=== PATIENT | female | born 1940 | race Caucasian/White ===

== ENCOUNTER 2021-09-27 08:50 | Emergency (ER) | payer MEDICARE ==
[~2021-09-27] VITALS: Ht 160 cm; Wt 61.1 kg
[2021-09-27] MEDS ORDERED: NORVASC10 MG PO (09:30)
[2021-09-27] MEDS ORDERED: ATORVASTATIN CA80 MG PO (10:06)
[2021-09-27] MEDS ORDERED: ASPIRIN81 MG PO (10:06)
[2021-09-27] MEDS ORDERED: CLONIDINE HCL0.2 MG PO (10:07)
[2021-09-27] MEDS ORDERED: EQUALACTIN PO (10:07)
[2021-09-27] MEDS ORDERED: HYDROCHLOROTHIA25 MG PO (10:07)
[2021-09-27] MEDS ORDERED: WELLBUTRIN SR100 MG PO (10:08)
[2021-09-27] MEDS ORDERED: NAMENDA10 MG PO (10:08)
[2021-09-27] MEDS ORDERED: HYDROCODON-ACE1 EA10 PO (10:08)
[2021-09-27] MEDS ORDERED: ZOLOFT50 MG PO (10:09)
[2021-09-27] MEDS ORDERED: XANAX0.25 MG PO (11:29)
[2021-09-27] MEDS ORDERED: AMOXICILLIN500 MG PO (11:29)
--- NOTE | 2021-09-27 13:16 | EKG ---
[facility] [address] [place], [place] [address] Signed Sinus rhythm with 1st degree AV block Right bundle branch block Septal infarct , age undetermined Abnormal ECG No previous ECGs available Confirmed by ISHAN CARTWRIGHT MD ([id number]) on 09/27/2021 1:16:13 PM Electronically Signed By: ISHAN CARTWRIGHT MD 09/27/21 1316 PATIENT NAME: SUNDAY BELLA Electrocardiogram DATE OF : 38 PHYSICIAN: ISHAN CARTWRIGHT MD REPORT #: [id number] REPORT IS CONFIDENTIAL AND NOT TO BE RELEASED WITHOUT AUTHORIZATION
== END 2021-09-27 13:15 | disposition home or self-care (01) ==
LOC: ED 08:50
DX: F41.9 Anxiety disorder, unspecified (principal); R41.82 Altered mental status, unspecified; I10 Essential (primary) hypertension; J32.9 Chronic sinusitis, unspecified; Z88.8 Allergy status to other drugs, medicaments and biological substances; Z79.82 Long term (current) use of aspirin; Z79.899 Other long term (current) drug therapy
CPT/HCPCS: 36415; 70450; 71045; 80053; 81001; 84484; 85025; 93005; 93010; 96372; 99285-25; A9270; J2060

== ENCOUNTER 2021-10-09 03:51 | Emergency (ER) | payer MEDICARE, OTHER ==
[~2021-10-09] VITALS: Ht 160 cm; Wt 59.2 kg
[~2021-10-09 03:51] MED LIST: AMOXICILLIN500 MG PO; ASPIRIN81 MG PO; ATORVASTATIN CA80 MG PO; CLONIDINE HCL0.2 MG PO; EQUALACTIN PO; HYDROCHLOROTHIA25 MG PO; HYDROCODON-ACE1 EA10 PO; NAMENDA10 MG PO; NORVASC10 MG PO; WELLBUTRIN SR100 MG PO; XANAX0.25 MG PO; ZOLOFT50 MG PO
--- OUTSIDE RECORDS SUMMARY | 2021-10-09 03:54 | XMS ---
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 Félix has no Care Guidelines for this patient. [facility] MO.) [facility] NOTE: Visits indicate total known visits. ED/C VISIT TRACKING (12 MO.) [facility]2021 03[facility] COMPLAINT: - ALTERED 09/27/2021 08:[address] 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
[2021-10-09] MEDS ORDERED: DEPAKOTE125 MG PO (04:15)
[2021-10-09] MEDS ORDERED: MELATONIN1 M2 PO (04:16)
[2021-10-09] MEDS ORDERED: MIRALAX17 GM PO (04:16)
[2021-10-09] MEDS ORDERED: K-TAB ER20 MEQ PO (04:18)
[2021-10-09] MEDS ORDERED: RISPERDAL1 MG PO (04:18)
[2021-10-09] MEDS ORDERED: SENNA-PLUS TAB1 EACH PO (04:19)
[2021-10-09] MEDS ORDERED: VITAMIN D31250 MC1 PO (04:20)
[2021-10-09] MEDS ORDERED: WELLBUTRIN SR100 MG PO (04:21)
[2021-10-09] MEDS ORDERED: ZOLOFT25 MG PO (04:22)
[2021-10-09] MEDS ORDERED: CLONIDINE HCL0.2 MG PO (04:32)
--- NOTE | 2021-10-09 19:10 | EKG ---
[facility] [address] [place], [place] [address] Signed Normal sinus rhythm Right bundle branch block Septal infarct (cited on or before 27-SEP-2021) Abnormal ECG When compared with ECG of 27-SEP-2021 09:21, Questionable change in initial forces of Septal leads Confirmed by ISHAN CARTWRIGHT MD ([id number]) on 10/09/2021 7:09:50 PM Electronically Signed By: ISHAN CARTWRIGHT MD 10/09/211909 PATIENT NAME: SUNDAY BELLA Electrocardiogram DATE OF : 38 PHYSICIAN: ISHAN CARTWRIGHT MD REPORT #: [id number] REPORT IS CONFIDENTIAL AND NOT TO BE RELEASED WITHOUT AUTHORIZATION
== END 2021-10-09 05:16 ==
LOC: ED 03:51
DX: R41.82 Altered mental status, unspecified (principal); I10 Essential (primary) hypertension; Z86.73 Personal history of transient ischemic attack (TIA), and cerebral infarction without residual deficits; E03.9 Hypothyroidism, unspecified; E78.5 Hyperlipidemia, unspecified; Z88.8 Allergy status to other drugs, medicaments and biological substances; Z79.899 Other long term (current) drug therapy; Z79.82 Long term (current) use of aspirin
CPT/HCPCS: 36415; 70450; 71045; 80053; 81001; 85025; 85610; 85730; 93005; 93010; 99285-25